=== PATIENT | female | born 1965 | race Caucasian/White ===

== ENCOUNTER 2019-02-18 16:01 | Emergency (ER) | payer SELFPAY ==
[~2019-02-18] VITALS: Ht 157.5 cm; Wt 98.0 kg
[2019-02-18] MEDS ORDERED: VENTOLIN H108 MCG/AC INHW/SPAC (16:17)
[2019-02-18] MEDS ORDERED: VENTOLIN HFA IN (18:21)
[2019-02-18] MEDS ORDERED: ZPAK PO (18:21)
[2019-02-18] MEDS ORDERED: TESSALON PER100 MG PO (18:21)
[2019-02-18] MEDS ORDERED: AMOXICILLIN875 MG PO (18:21)
[2019-02-18 18:39] VITALS: BP 127/83
== END 2019-02-18 18:39 | disposition home or self-care (01) | DRG 203 ==
LOC: ED 16:01
DX: J40 Bronchitis, not specified as acute or chronic (principal); J02.9 Acute pharyngitis, unspecified